=== PATIENT | male | born 1970 | race African-American/Black ===

== ENCOUNTER 2019-03-18 02:04 | Emergency (ER) | payer BC, MEDICAID ==
[~2019-03-18] VITALS: Ht 177.8 cm; Wt 100.0 kg
[2019-03-18] MEDS ORDERED: KETOROLAC 30MG/ML VIAL IV STA (02:56)
[2019-03-18] MEDS ORDERED: ONDANSETRON HCL 4MG/2ML INJ IV STA (02:56)
[2019-03-18 03:07] LABS: BASOPHILS % 1.3 % (0.0-2.0); CHLORIDE 108 mEq/L (98-107); EOSINOPHILS % 3.6 % (0.0-5.0); HEMATOCRIT. 39.5 % (42.0-52.0); HEMOGLOBIN. 13.4 g/dL (14.0-18.0); MEAN CORPUSCULAR HEMOGLOBIN 30.2 pg (28.0-32.0); MEAN CORPUSCULAR VOLUME 89.1 fL (80.0-94.0); MEAN PLATELET VOLUME 8.5 fl (7.4-10.4); MONOCYTES % 9.1 % (2.0-8.0); PLATELET 376 x1000/uL (130-400); RED BLOOD CELL COUNT 4.43 mill/uL (4.7-6.1); RED CELL DISTRIBUTION WIDTH 13.6 % (11.6-14.6)
[2019-03-18 03:13] LABS: PROTHROMBIN TIME 10.3 sec (9.6-11.0)
[2019-03-18 04:15] LABS: CLARITY URINE CLOUDY (CLEAR); COLOR URINE YELLOW (YELLOW); KETONES URINE TRACE (NEGATIVE); LEUKOCYTE ESTERASE URINE NEGATIVE (NEGATIVE); NITRITE URINE NEGATIVE (NEGATIVE); OCCULT BLOOD URINE 3+ (NEGATIVE); PROTEIN URINE TRACE (NEGATIVE); SPECIFIC GRAVITY URINE 1.021 (1.005-1.030)
[2019-03-18] MEDS ORDERED: MORPHINE SULFATE 4 MG/ML CPJ (NOT FOR IM USE) IV NR (04:15)
[2019-03-18] MEDS ORDERED: CEFAZOLIN 1000MG PREMIX 50 ML IV NR (04:15)
[2019-03-18 06:21] VITALS: BP 130/84
== END 2019-03-18 06:28 | disposition home or self-care (01) ==
LOC: ER 02:04
DX: N13.30 Unspecified hydronephrosis (principal); N20.1 Calculus of ureter; N32.0 Bladder-neck obstruction; Z87.442 Personal history of urinary calculi
CPT/HCPCS: 36415; 74176; 80053; 81003; 83690; 85025; 85610; 96365; 96375; 99284; J0690; J1885; J2270; J2405